=== PATIENT | male | born 2000 | race Caucasian/White ===

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

== ENCOUNTER 2024-09-19 14:54 | Emergency (ER) | payer SELFPAY ==
[2024-09-19] MEDS: Lidocaine 1% 10 ML MDV INJECT ONE (15:39)
[2024-09-19] MEDS: Diphtheria,Pertussis(Acell),Tetanus Vaccine 0.5 ML Syringe IM ONE (15:39)
[2024-09-19 15:56] VITALS: BP 165/85; PULSE 87
== END 2024-09-19 16:00 | disposition home or self-care (01) ==
LOC: VM.ED 14:54
DX: S51.812A Laceration without foreign body of left forearm, initial encounter (principal); Z88.1 Allergy status to other antibiotic agents; Z88.2 Allergy status to sulfonamides; Z88.8 Allergy status to other drugs, medicaments and biological substances; W45.8XXA Other foreign body or object entering through skin, initial encounter; Z23 Encounter for immunization
CPT/HCPCS: 12011; 90471; 90715; 99282-25; J2003

== ENCOUNTER 2025-01-13 12:31 | Emergency (ER) | payer SELFPAY ==
[2025-01-13 12:46] VITALS: BP 178/99; PULSE 96
[2025-01-13] MEDS: Diphtheria,Pertussis(Acell),Tetanus Vaccine 0.5 ML Syringe IM ONE (14:09)
== END 2025-01-13 13:18 | disposition home or self-care (01) ==
LOC: VM.ED 12:31
DX: S01.81XA Laceration without foreign body of other part of head, initial encounter (principal); F17.210 Nicotine dependence, cigarettes, uncomplicated; Z23 Encounter for immunization; Z88.0 Allergy status to penicillin; Z88.1 Allergy status to other antibiotic agents; Z88.2 Allergy status to sulfonamides; Z88.8 Allergy status to other drugs, medicaments and biological substances; W22.8XXA Striking against or struck by other objects, initial encounter; Y93.89 Activity, other specified
CPT/HCPCS: 90471; 99282-25; 99283